=== PATIENT | female | born 1965 | race Caucasian/White ===

== ENCOUNTER 2019-01-29 09:00 | Observation (INO) | payer OTHER, BC ==
[2019-01-29] MEDS: SOD CHLORIDE 0.9% 1,000 ML IV (11:08)
[2019-01-29] MEDS ORDERED: HYDROmorphONE 1 MG/5 ML IV SYRINGE IV ×2 (12:30)
[2019-01-29] MEDS ORDERED: LIDOCAINE 2% (SDV) 5 ML INJ (12:44)
[2019-01-29] MEDS ORDERED: ETOMIDATE 20 MG INJ (12:44)
[2019-01-29] MEDS ORDERED: PROPOFOL 20 ML (12:44)
[2019-01-29] MEDS ORDERED: MIDAZOLAM 1 MG/ML 2 ML INJ (12:44)
[2019-01-29] MEDS ORDERED: DEXAMETHASONE 4 MG/ML 5 ML INJ (12:56)
[2019-01-29] MEDS ORDERED: ONDANSETRON 4 MG INJ (12:56)
[2019-01-29] MEDS ORDERED: CEFAZOLIN 1 GM INJ (12:56)
[2019-01-29] MEDS ORDERED: LABETALOL HCL 20MG INJ (13:39)
[2019-01-29] MEDS ORDERED: morphine 2 MG INJ IV ×2 (14:30→16:00)
[2019-01-29] MEDS ORDERED: ONDANSETRON 4 MG INJ IV ×2 (14:30→16:00)
[2019-01-29] MEDS ORDERED: ACETAMINOPHEN 1000MG/100ML IV 100 ML IVPB (14:30)
[2019-01-29] MEDS: CEFAZOLIN 2 GM/50 ML (PMX) 50 ML IVPB (14:30)
[2019-01-29] MEDS: ONDANSETRON 4 MG INJ IV (15:25)
[2019-01-29] MEDS: HYDROmorphONE 1 MG/5 ML IV SYRINGE IV (15:25)
[2019-01-29] MEDS ORDERED: NACL 0.9% 3 ML SYG IV (16:00)
[2019-01-29] MEDS ORDERED: MAGNESIUM HYDROXIDE 30ML CUP PO (16:00)
[2019-01-29] MEDS ORDERED: ACETAMINOPHEN 325 MG TAB PO (16:00)
[2019-01-29] MEDS ORDERED: DOCUSATE SODIUM 100 MG CAP PO (16:00)
[2019-01-29] MEDS: D5W-0.45 NACL + KCL 20 MEQ 1,000 ML IV (17:20)
[2019-01-29] MEDS: HYDROCODONE/APAP (5/325) TAB PO (19:37)
[2019-01-30] MEDS: D5W-0.45 NACL + KCL 20 MEQ 1,000 ML IV ×2 (00:49→06:09)
[2019-01-30 05:05] LABS: ADD MAN DIFF? NO
[2019-01-30 05:08] LABS: HEMATOCRIT 33.6 % (37.0-47.0); HEMOGLOBIN 10.6 g/dl (12.0-16.0); LYMPHOCYTES % 10.7 % (15.0-51.0); MEAN CORPUSCULAR HEMOGLOBIN 30.7 pg (29.0-33.0); MEAN CORPUSCULAR HGB CONC 31.5 g/dl (32.0-37.0); MEAN CORPUSCULAR VOLUME 97.4 fl (82.0-101.0); MEAN PLATELET VOLUME 9.2 fl (7.4-10.4); MONOCYTE # 0.5 10^3/ul (0.3-0.9); MONOCYTES % 5.2 % (0.0-11.0); NEUTROPHIL # 7.5 10^3/ul (1.6-7.5); NEUTROPHILS % 83.7 % (39.0-77.0); PLATELET COUNT 277 10^3/UL (140-415); RED BLOOD COUNT 3.45 10^6/ul (4.20-5.40); RED CELL DISTRIBUTION WIDTH 15.1 % (11.5-14.5)
[2019-01-30 05:44] LABS: ANION GAP 12 (5-13); BLOOD UREA NITROGEN 9 mg/dl (7-20); CALCIUM 9.2 mg/dl (8.4-10.2); CARBON DIOXIDE 24 mmol/L (21-31); CHLORIDE 107 mmol/L (97-110); CREATININE 0.58 mg/dl (0.44-1.00); Estimated GFR > 60 mL/min (>60); GLUCOSE 191 mg/dl (70-220); PHOSPHORUS 3.8 mg/dl (2.5-4.9); POTASSIUM 4.6 mmol/L (3.5-5.1); SODIUM 143 mmol/L (135-144)
[2019-01-30] MEDS: HYDROCODONE/APAP (5/325) TAB PO (06:09)
[2019-01-30 07:32] LABS: HEMOGLOBIN A1C 5.3 % (0-5.9)
== END 2019-01-30 16:00 | disposition home or self-care (01) ==
LOC: REC 09:00 → MS1 15:54
PROVIDERS: Surgery Surgical Oncology
DX: C50.812 Malignant neoplasm of overlapping sites of left female breast (principal); Z17.1 Estrogen receptor negative status [ER-]; J45.909 Unspecified asthma, uncomplicated
CPT/HCPCS: 19307; 80048; 82962; 83036; 83735; 84100; 85025; 88307; 88309; 99217